=== PATIENT | male | born 1955 | race Caucasian/White ===

== ENCOUNTER → 2020-06-24 00:21 | Outpatient (CLI) | payer MEDICARE, SELFPAY ==
[2020-06-24 17:47] LABS: SARS-CoV-2 RNA PCR Negative
== END ==
PROVIDERS: PCP Family Medicine; Visit Provider Internal Medicine Gastroenterology
DX: Z01.812 Encounter for preprocedural laboratory examination (principal); Z20.822 Contact with and (suspected) exposure to COVID-19
CPT/HCPCS: C9803; U0003; U0005

== ENCOUNTER 2020-06-27 01:31 | Day surgery (SDC) | payer MEDICARE, SELFPAY ==
[2020-06-10 09:12] VITALS: BMI 25.9
[2020-06-27 07:38] VITALS: BP 162/81; PULSE 68; RESP 20; TEMP 36.6; O2SAT 99
[2020-06-27] MEDS: LACTATED RINGERS 1,000 ML 150 ML IV CONT (07:47)
--- NOTE | 2020-06-27 08:07 | PM.HPGS ---
History of Present Illness History of Present Illness Consent: Risks, benefits, and alternatives have been discussed and questions answered. Patient agrees to proceed with procedure. Chief complaint: Iron Definciency Anemia Narrative: Mango Henderson is a 65 year old male found to have iron deficiency anemia. He does have chronic acid reflux for which she takes medication daily. Denies weight loss Review of Systems Review of Systems: All systems reviewed & are unremarkable except as noted in HPI and below PMFSH Past Medical History Medical History Abnormal fasting glucose Chronic pain of right hand Insomnia Nocturia Family History Family History Mother Patient's mother is , Onset Age: 82 Father Patient's father is , Onset Age: 88 Social History Social History Smoking status: Never smoker Alcohol intake: never Substance use: never Substance use type: does not use Living arrangements: with family Gender identity (if verbalized by the patient): Male Spiritual care concerns: No Meds Home Medications and Allergies Home Medications Medication Instructions Recorded Confirmed Type linaclotide 290 mcg capsule 290 mcg PO DAILY PRN 03/18/19 06/10/20 History zolpidem 10 mg tablet 10 mg PO .QHS PRN #90 tablet 06/23/19 06/10/20 Rx hydrocodone 10 mg-acetaminophen 1 tablet PO Q6H PRN #120 tablet 05/30/20 06/10/20 Rx 325 mg tablet esomeprazole magnesium [Nexium] 20 mg PO DAILY 06/10/20 06/10/20 History Allergies Allergy/AdvReac Type Severity Reaction Status Date / Time No Known Allergies Allergy Verified 06/27/20 07:37 Vital Signs Vital Signs - 24 hr 06/27/20 07:38 Temperature 36.6 C Pulse Rate 68 Respiratory Rate 20 Blood Pressure 162/81 H Pulse Oximetry 99 Exam Const: General: alert Orientation/consciousness: patient oriented x3 Resp: Auscultation: clear to auscultation bilaterally Cardio: Rhythm: regular rhythm GI: GI Palp: Yes Soft to palpation and No Tenderness to palpation present (GI) Neuro: General: patient oriented x3 Assessment and Plan Assessment and plan (1) Iron deficiency anemia, unspecified: Qualifiers: Iron deficiency anemia type: unspecified iron deficiency Qualified Code(s): D50.9 - Iron deficiency anemia, unspecified Code(s): D50.9 - Iron deficiency anemia, unspecified Status: Acute Assessment and Plan: Colonoscopy with possible biopsy or polypectomy or cautery or injection of substances.EGD with possible biopsy or dilatation or cautery.
--- NOTE | 2020-06-27 08:20 | WPDANESEPPF ---
Anes - Initial Pre Proc Eval Procedure: Operation Date: 06/27/20 09:00 Proposed Procedures p Esophagogastroduodenoscopy & Colonoscopy - Mango Monae MD Date/Time: 06/27/20 08:20 Surgeon: Mango Monae MD Pre Op Diagnosis: Iron Definciency Anemia Patient Data Age: 65 Gender: M Height: 5 ft 6 in Weight: 72.1 kg Last Vital Signs Temp 97.8 F 06/27/20 07:38 Pulse 68 06/27/20 07:38 Resp 20 06/27/20 07:38 BP 162/81 H 06/27/20 07:38 Pulse Ox 99 06/27/20 07:38 Allergies Allergy/AdvReac Type Severity Reaction Status Date / Time No Known Allergies Allergy Verified 06/27/20 07:37 Home Medications Medication Instructions Recorded Confirmed Type linaclotide 290 mcg capsule 290 mcg PO DAILY PRN 03/18/19 06/10/20 History zolpidem 10 mg tablet 10 mg PO .QHS PRN #90 tablet 06/23/19 06/10/20 Rx hydrocodone 10 mg-acetaminophen 1 tablet PO Q6H PRN #120 tablet 05/30/20 06/10/20 Rx 325 mg tablet esomeprazole magnesium [Nexium] 20 mg PO DAILY 06/10/20 06/10/20 History Patient hx anesthesia problems: none Family hx anesthesia problems: none PMFSH Past Medical History Medical History (Updated 06/27/20 @ 08:20 by Danie Amanda MD) Abnormal fasting glucose Chronic pain of right hand GERD (gastroesophageal reflux disease) (11/04/18) Insomnia Mixed hyperlipidemia Nocturia Family History Family History Mother Patient's mother is , Onset Age: 82 Father Patient's father is , Onset Age: 88 Social History Social History Smoking status: Never smoker Alcohol intake: never Substance use: never Substance use type: does not use Living arrangements: with family Gender identity (if verbalized by the patient): Male Spiritual care concerns: No Anes - Eval Final PreProcedure Day of Procedure 06/27/20 08:20 Patient weight: normal Heart: regular rate and rhythm Lungs: clear to auscultation Airway: Mallampati scale class II Neurological: alert and oriented Last oral intake: >/= 8 hours ASA classification: II Emergent: no Anesthetic plan: proceed Anesthesia type and monitoring: general GIVS and standard monitoring Informed Consent: The patient's anesthetic plan and its attendant risks and benefits were discussed with the patient/family/POA. Questions were solicited and answers provided to the satisfaction of the patient/family/POA.
[2020-06-27 09:07] VITALS: BP 143/82; PULSE 68; RESP 17; O2SAT 98
[2020-06-27 09:17] VITALS: BP 166/87; PULSE 56; RESP 16; O2SAT 100
[2020-06-27 09:27] VITALS: BP 166/87; PULSE 58; RESP 18; O2SAT 100
== END 2020-06-27 09:46 | disposition home or self-care (01) ==
PROVIDERS: PCP Family Medicine; Visit Provider Internal Medicine Gastroenterology
PROC: 0DJ08ZZ Inspection of Upper Intestinal Tract, Via Natural or Artificial Opening Endoscopic (ICD-10-PCS; CPT 43235; principal; 2020-06-27 09:00)
DX: Z12.11 Encounter for screening for malignant neoplasm of colon (principal); K57.30 Diverticulosis of large intestine without perforation or abscess without bleeding; D50.9 Iron deficiency anemia, unspecified; K22.70 Barrett's esophagus without dysplasia; K31.7 Polyp of stomach and duodenum; K21.9 Gastro-esophageal reflux disease without esophagitis; E78.2 Mixed hyperlipidemia
CPT/HCPCS: 43239; G0121; 88305; J2001; J2704; J7120

== ENCOUNTER → 2020-11-15 13:07 | Outpatient (CLI) | payer MEDICARE, SELFPAY ==
--- NOTE | ~2020-11-15 | XR_ITS ---
XR lumbar spine 2-3V DATE: 11/15/2020 13:55 INDICATION: Back pain TECHNIQUE: Standing AP, lateral, coned lateral lumbosacral views COMPARISON: None FINDINGS: There is diffuse idiopathic skeletal hyperostosis of the lower thoracic and lumbar spine. No fracture or spondylolisthesis or bone destruction is evident. The included lower thoracic and lumb ar pedicles appear intact. The sacroiliac joints are intact. IMPRESSION: Diffuse idiopathic skeletal hyperostosis of the thoracic and lumbar spine Reviewed, dictated and finalized at [facility].
--- NOTE | ~2020-11-15 | XR_ITS ---
XR_[id number]_CR DATE: 11/15/2020 13:55 INDICATION: Neck pain TECHNIQUE: AP, open-mouth, odontoid, lateral and swimmer views COMPARISON: None FINDINGS: C1 and C2 are normally aligned and the odontoid process is intact. No fracture or dislocation or locked facet or prevertebral soft tissue swelling. There are bridging osteophytes along the anterior aspect of C4-T1. Cervical interspaces are relatively preserved. Uncovertebral joint spurring in the mid and lower cervical spine and degenerative change throughout t he apophyseal joints. IMPRESSION: Degenerative changes including anterior bridging osteophytes at C4-T1 Reviewed, dictated and finalized at [facility]. Reviewed, dictated and finalized at [facility]. IMPRESSION: Degenerative changes including anterior bridging osteophytes at C4- T1
== END ==
PROVIDERS: PCP Family Medicine; Visit Provider Physician Assistant
DX: M25.50 Pain in unspecified joint (principal); M48.16 Ankylosing hyperostosis [Forestier], lumbar region; M48.14 Ankylosing hyperostosis [Forestier], thoracic region
CPT/HCPCS: 72040; 72100